=== PATIENT | female | born 1940 | race Caucasian/White ===

== ENCOUNTER 2020-07-27 12:39 | Inpatient (IN) | payer MEDICARE ==
[~2020-07-27] VITALS: Ht 165.1 cm; Wt 81.6 kg
[2020-07-27] MEDS ORDERED: ACETAMINOPHEN325 MG PO (12:56)
[2020-07-27] MEDS ORDERED: NORVASC5 MG PO (12:58)
[2020-07-27] MEDS ORDERED: ZYRTEC10 MG PO (12:58)
[2020-07-27] MEDS ORDERED: ASPIRIN325 MG PO (12:58)
[2020-07-27] MEDS ORDERED: LEXAPRO20 MG PO (13:00)
[2020-07-27] MEDS ORDERED: MYRBETRIQ50 MG PO (13:00)
[2020-07-27] MEDS ORDERED: VITAMIN B-121000 MCG PO (13:00)
[2020-07-27] MEDS ORDERED: OMEPRAZOLE20 M1 PO (13:01)
[2020-07-27] MEDS ORDERED: PRAVASTATIN SOD10 MG PO (13:01)
[2020-07-27 13:16] LABS: BASOPHILS 0.1 % (0-2); EOSINOPHILS 0 % (0-7); HEMATOCRIT 42.2 % (36.0-48.0); HEMOGLOBIN 14.4 g/dL (12-16); IMMATURE GRANULOCYTES 0.4 % (0-5); LYMPHOCYTE ABS# 0.99 10x3/uL (1.18-3.74); LYMPHOCYTES 5.4 % (15-50); MCH 33.5 pg (26.0-34.0); MCHC 34.1 g/dL (31.0-37.0); MCV 98.1 fL (80.0-100.0); MEAN PLATELET VOLUME 9.8 fL (7.4-10.4); MONOCYTES 6.6 % (2-11); NEUTROPHIL ABS# 16.09 10x3/uL (1.56-6.13); NEUTROPHILS 87.5 % (40-80); PLATELET COUNT 285 10x3/uL (130-400); RDW 13.6 % (11.5-14.5); WBC 18.4 10x3/uL (4.8-10.8)
[2020-07-27 13:17] LABS: CALC OSMOLALITY 276 mosm/kg (275-300); CALCIUM 9.4 mg/dL (8.5-10.1); CARBON DIOXIDE 26.8 mmol/L (21.0-32.0); CHLORIDE - SERUM 101 mmol/L (98-107); CREATININE - SERUM 0.7 mg/dL (0.6-1.3); GLUCOSE 114 mg/dL (74-106); POTASSIUM - SERUM 3.7 mmol/L (3.5-5.1); SODIUM 138 mmol/L (136-145); UREA NITROGEN 12 mg/dL (7-18); eGFR NON AFRICAN AMERICAN 86 mL/min (90-120)
[2020-07-27 13:24] LABS: ALBUMIN 3.7 g/dL (3.4-5.0); ALKALINE PHOSPHATASE 101 U/L (30-120); ALT (SGPT) 22 U/L (10-68); BILIRUBIN - TOTAL 0.65 mg/dL (0.2-1.3)
--- NOTE | 2020-07-27 14:19 | NUR ---
IN AND OUT CATHETER DONE TO COLLECT URINE SPECIMEN. SCANT AMOUNT RETRIEVED. AFTER CATHETER REMOVED, PATIENT WAS INCONTINENT OF LARGE AMOUNT OF URINE. LINENS CHANGED.
[2020-07-27 15:25] LABS: BILIRUBIN NEGATIVE (NEGATIVE); KETONE LARGE mg/dL (NEGATIVE); NITRITE NEGATIVE (NEGATIVE); UROBILINOGEN NORMAL mg/dL (< 2)
[2020-07-27 15:30] LABS: APTT 28.8 SECONDS (22.8-39.4); INR 1.03 (0.85-1.17); PROTIME 12.5 SECONDS (11.6-15.0)
[2020-07-27 15:45] LABS: CKMB 15.3 U/L (0.0-3.6); TROPONIN-I 0.046 ng/mL (0.000-0.060)
[2020-07-27 15:47] LABS: CREATINE KINASE 988 UL (21-215)
--- NOTE | 2020-07-27 17:00 | NUR ---
LINENS SOAKED WITH URINE. ASSISTED PATIENT TO BEDSIDE CHAIR. GOWN AND BRIEFS CHANGED, LINENS CHANGED.
--- NOTE | 2020-07-27 17:49 | NUR ---
PATIENT'S SON NOTIFIED OF ROOM NUMBER, MED/SURG UNIT PHONE AND PATIENT'S CODE NUMBER. REPORT CALLED TO ARASELI DUMONT/SURG.
--- NOTE | 2020-07-27 19:00 | NUR ---
BEDSIDE REPORT RECEIVED AND CARE OF PT ASSUMED. PT LYING IN HIGH ISABEL'S POSITION EATING A SANDWICH. IV TO RIGHT HAND PATENT WITH NS INFUSING AT 50 ML/HR.
--- NOTE | 2020-07-27 19:15 | NUR ---
PLACED SCD'S ON PT'S BLE PER ORDER. TELEMETRY PLACED PER ORDER AND PT READING SR AT THIS ASSESSMENT. BED ALARM ACTIVATED ON BED FOR SAFETY.
--- NOTE | 2020-07-27 20:38 | NUR ---
HS MEDICATIONS GIVEN. WILL CONTINUE TO MONITOR FOR NEEDS.
[2020-07-27 20:42] VITALS: BP 129/77; BMI 24.6
--- NOTE | 2020-07-27 21:06 | NUR ---
ADMISSION ASSESSMENT AND HISTORY COMPLETE.
[2020-07-27] MEDS ORDERED: TRAZODONE HCL50 MG PO (21:15)
[2020-07-27] MEDS ORDERED: POLY-VI-SOL W/I50 ML PO (21:15)
[2020-07-27] MEDS ORDERED: PHENERGAN25 M1 PO (21:17)
--- NOTE | 2020-07-27 21:26 | NUR ---
MED REC RECONCILED WITH PT'S NURSE AT THE [facility].
[2020-07-27] MEDS ORDERED: [UNRECOGNIZED DRUG - OTHER] PO (21:56)
[2020-07-28] VITALS: BP 132/72
[2020-07-28 04:00] VITALS: BP 129/57
[2020-07-28 06:02] LABS: BASOPHILS 0.2 % (0-2); EOSINOPHILS 0.7 % (0-7); HEMATOCRIT 39.2 % (36.0-48.0); HEMOGLOBIN 13.3 g/dL (12-16); IMMATURE GRANULOCYTES 0.3 % (0-5); LYMPHOCYTE ABS# 2.57 10x3/uL (1.18-3.74); LYMPHOCYTES 23.4 % (15-50); MCH 33.1 pg (26.0-34.0); MCHC 33.9 g/dL (31.0-37.0); MCV 97.5 fL (80.0-100.0); MEAN PLATELET VOLUME 10.5 fL (7.4-10.4); MONOCYTES 11.3 % (2-11); NEUTROPHIL ABS# 7.03 10x3/uL (1.56-6.13); NEUTROPHILS 64.1 % (40-80); PLATELET COUNT 303 10x3/uL (130-400); RBC 4.02 10x6/uL (4.00-5.40); RDW 14.1 % (11.5-14.5)
[2020-07-28 06:18] LABS: ALBUMIN 3.1 g/dL (3.4-5.0); ALKALINE PHOSPHATASE 82 U/L (30-120); ALT (SGPT) 20 U/L (10-68); BILIRUBIN - TOTAL 0.58 mg/dL (0.2-1.3); CALC OSMOLALITY 271 mosm/kg (275-300); CARBON DIOXIDE 24.6 mmol/L (21.0-32.0); CHLORIDE - SERUM 104 mmol/L (98-107); CREATININE - SERUM 0.6 mg/dL (0.6-1.3); GLUCOSE 98 mg/dL (74-106); MAGNESIUM - SERUM 1.8 mg/dL (1.8-2.4); PHOSPHOROUS 3.1 mg/dL (2.5-4.9); POTASSIUM - SERUM 3.2 mmol/L (3.5-5.1); PROTEIN - SERUM 6.4 g/dL (6.4-8.2); SODIUM 137 mmol/L (136-145); eGFR NON AFRICAN AMERICAN > 90 mL/min (90-120)
[2020-07-28 06:20] LABS: UREA NITROGEN 8 mg/dL (7-18)
--- NOTE | 2020-07-28 07:23 | NUR ---
RECIEVED BEDSIDE REPORT. IN BED SLEEPING. AROUSES TO VOICE. DENIES NEEDS AT THIS TIME. FREE FROM SIGNS OF DISTRESS. BED LOW POSITION, CALL LIGHT IN REACH. WILL CONTINUE TO MONITOR.
[2020-07-28 08:00] VITALS: BP 136/72
[2020-07-28 14:33] VITALS: Ht 165.1 cm; Wt 81.6 kg
--- NOTE | 2020-07-28 19:16 | NUR ---
PATIENT RESTING IN BED WITH NO S/S OF DISTRESS AND DENIES NEEDS AT THIS TIME. BED IN LOWEST POSITION AND CALL LIGHT IN REACH. ENCOURAGED PATIENT TO CALL WITH NEEDS.
[2020-07-28 19:20] VITALS: BP 124/77
--- NOTE | 2020-07-28 20:10 | NUR ---
ADMINISTERED MEDS PER ORDERS. PATIENT DENIES OTHER NEEDS AT THIS TIME. ENCOURAGED PATIENT TO CALL WITH NEEDS.
--- NOTE | 2020-07-28 23:33 | NUR ---
UPON ENTERING THE PATIENT'S ROOM I COULD SMELL CIGARETTE SMOKE. THERE WAS ALSO A CUP OF WATER WITH ASHES IN IT SITTING ON THE PATIENT'S BEDSIDE TABLE. I EDUCATED THE PATIENT ON THE IMPORTANCE OF NOT SMOKING AND ESPECIALLY NOT SMOKING IN THE HOSPITAL. 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 PATIENT VERBALIZED UNDERSTANDING OF ALL OF THE ABOVE AND ASSURED ME IT WILL NOT HAPPEN AGAIN.
[2020-07-29 03:24] VITALS: BP 129/68
[2020-07-29 05:23] LABS: BASOPHILS 0.6 % (0-2); EOSINOPHILS 0.7 % (0-7); HEMATOCRIT 38.5 % (36.0-48.0); LYMPHOCYTES 18.4 % (15-50); MCH 33.4 pg (26.0-34.0); MCHC 33.8 g/dL (31.0-37.0); MCV 98.6 fL (80.0-100.0); MEAN PLATELET VOLUME 8.3 fL (7.4-10.4); MONOCYTES 12.7 % (2-11); NEUTROPHILS 67.6 % (40-80); PLATELET COUNT 265 10x3/uL (130-400); RDW 13.7 % (11.5-14.5)
[2020-07-29 06:20] LABS: ALBUMIN 3.1 g/dL (3.4-5.0); ALKALINE PHOSPHATASE 78 U/L (30-120); BILIRUBIN - TOTAL 0.52 mg/dL (0.2-1.3); CALC OSMOLALITY 277 mosm/kg (275-300); CARBON DIOXIDE 26.5 mmol/L (21.0-32.0); CHLORIDE - SERUM 104 mmol/L (98-107); CREATININE - SERUM 0.6 mg/dL (0.6-1.3); GLUCOSE 119 mg/dL (74-106); MAGNESIUM - SERUM 1.7 mg/dL (1.8-2.4); PHOSPHOROUS 2.9 mg/dL (2.5-4.9); POTASSIUM - SERUM 3.3 mmol/L (3.5-5.1); PROTEIN - SERUM 6.2 g/dL (6.4-8.2); SODIUM 140 mmol/L (136-145); UREA NITROGEN 6 mg/dL (7-18); eGFR NON AFRICAN AMERICAN > 90 mL/min (90-120)
[2020-07-29 06:22] LABS: ALT (SGPT) 28 U/L (10-68)
--- NOTE | 2020-07-29 07:31 | NUR ---
ALERT AND ORIENTED TO SELF. ASSESSMENT COMPLETE. DENIES NEEDS. BED LOW. BED ALARM ON. CALL MONTENEGRO AND PERSONAL ITEMS IN REACH. WILL CONTINUE TO MONITOR.
[2020-07-29 10:12] VITALS: BP 117/74
[2020-07-29 12:29] VITALS: BP 132/79
--- NOTE | 2020-07-29 12:31 | NUR ---
PATIENT REQUESTING BEDPAN. BEDDING SOAKED IN URINE. CHANGED AND GIVEN BEDPAN. VOIDED AGAIN. DENIES FURTHER NEEDS.
--- NOTE | 2020-07-29 14:28 | NUR ---
DC EDUCATION PROVIDED TO PATIENT. PATIENT CONFUSED. UNABLE TO SIGN PAPERWORK. IV REMOVED FROM RIGHT HAND WITH TIP INTACT. REPORT CALLED TO SARTHAK VELAZQUEZ AT [facility]. 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
--- NOTE | 2020-07-29 14:30 | NUR ---
DAUGHTER, JAMAR, NOTIFIED OF DC AND DC EDUCATION PROVIDED. DENIES QUESTIONS.
--- NOTE | 2020-07-29 14:41 | MORECARE ---
CASE MANAGEMENT DISCHARGE SUMMARY PATIENT: ROHIT SOMMERS UNIT: [id number] ADM DATE: 07/27/20 AGE: 79 : 42 SEX: F ROOM/BED: D.2223 AUTHOR: KAEL,DOC PHYSICIAN: REFERRING PHYSICIAN: ELISA ISSA MD DATE OF SERVICE: 07/29/20 Case Management Discharge Planning Summary COMMENTS ENTERED DATE: 07/29/20 14:30 CT COMMENT TYPE: Discharge Planning REVIEWER: Yessenia Sommers PATIENT LIVES AT THE [facility] IN ASSISTED LIVING. SHE IS CURRENT WITH [facility]. PLANS TO RETURN TO THE [facility] TODAY. I HAVE FAXED UPDATES AND THEY PLAN TO PICK HER UP AROUND 3PM TODAY. CM TO FOLLOW AND ASSIST NEEDED. DCP REVIEW SUMMARY ANTICIPATED D/C DATE: EXPECTED LOS : CASE STATUS: DCP Initiated INITIAL REVIEW: 07/27/2020 INITIAL REVIEWER: Yessenia Sommers FINAL DISCHARGE DISPOSITION: : FINAL REVIEWER: FINAL REVIEW DATE: DCP [employer] Questions & Answers QUESTION: ANSWER : PATIENT: ROHIT SOMMERS ENCOUNTER: [id number] MEDICAL RECORD#: [id number] ADMISSION DATE: 07/27/2020 DISCHARGE DATE: ATTENDING MD: : AGE: 79 MARITAL STATUS: S DC PLAN ID: [id number] FACILITY: [facility] PRINTED ON: 07/29/20 14:41 CT All edits/amendments must be made on the electronic document DICTATION DATE: 07/29/201440 HOSPICE TEAM LEAD: JHONATHAN 07/29/201440 RPT#: [id number] DC DATE: STATUS: ADM IN [facility] [address] [place] [address] END OF REPORT
--- NOTE | 2020-07-29 15:02 | NUR ---
TELEMETRY REMOVED AND RETURNED TO [facility] AT [facility].
--- NOTE | 2020-07-29 15:36 | NUR ---
PATIENT DC TO [facility] WITH ALL BELONGINGS.
--- NOTE | 2020-07-29 16:03 | NUR ---
OT NOTE: PT REQUIRED MIN-MOD A FOR SUPINE TO SIT. PT REQUIRED MIN-MOD A FOR SIT TO STAND. PT REQUIRED MIN A FOR ADL MOB TO BATHROOM. PT COMPLETED TOILETING WITH SBA. PT COMPLETED TOILET HYGIENE WITH MIN A. PT COMPLETED FACE AND HAND HYGIENE WITH SETUP. NOTIFIED NURSE OF SORES ON FEET. [phone] SABIHA ROY COTA
--- NOTE | 2020-07-30 14:44 | MORECARE ---
CASE MANAGEMENT DISCHARGE SUMMARY PATIENT: ROHIT SOMMERS UNIT: [id number] ADM DATE: 07/27/20 AGE: 79 : 42 SEX: F ROOM/BED: D.2223 AUTHOR: KAEL,DOC PHYSICIAN: REFERRING PHYSICIAN: ELISA ISSA MD DATE OF SERVICE: 07/30/20 Case Management Discharge Planning Summary COMMENTS ENTERED DATE: 07/29/20 14:30 CT COMMENT TYPE: Discharge Planning REVIEWER: Yessenia Sommers PATIENT LIVES AT THE [facility] IN ASSISTED LIVING. SHE IS CURRENT WITH [facility]. PLANS TO RETURN TO THE [facility] TODAY. I HAVE FAXED UPDATES AND THEY PLAN TO PICK HER UP AROUND 3PM TODAY. CM TO FOLLOW AND ASSIST NEEDED. DCP REVIEW SUMMARY ANTICIPATED D/C DATE: EXPECTED LOS : CASE STATUS: DCP Initiated INITIAL REVIEW: 07/27/2020 INITIAL REVIEWER: Yessenia Tootie FINAL DISCHARGE DISPOSITION: : FINAL REVIEWER: FINAL REVIEW DATE: DCP [employer] Questions & Answers QUESTION: ANSWER : PATIENT: ROHIT SOMMERS ENCOUNTER: [id number] MEDICAL RECORD#: [id number] ADMISSION DATE: 07/27/2020 DISCHARGE DATE: 07/29/2020 ATTENDING MD: : AGE: 79 MARITAL STATUS: S DC PLAN ID: [id number] FACILITY: [facility] PRINTED ON: 07/30/20 14:43 CT All edits/amendments must be made on the electronic document DICTATION DATE: 07/30/201442 DIRECTOR BUSINESS: DM 07/30/201442 RPT#: [id number] DC DATE:07/29/20 STATUS: DIS IN [facility] [address] [place] [address] END OF REPORT
== END 2020-07-29 15:36 | disposition home or self-care (01) | DRG 815 ==
LOC: D.ER 12:39 → D.MS 16:33
PROVIDERS: Family Medicine; ADMIT Family Medicine; ATTEND Family Medicine
DX: D72.829 Elevated white blood cell count, unspecified (principal); M84.422A Pathological fracture, left humerus, initial encounter for fracture; I10 Essential (primary) hypertension; E03.9 Hypothyroidism, unspecified; I48.91 Unspecified atrial fibrillation; F03.90 Unspecified dementia, unspecified severity, without behavioral disturbance, psychotic disturbance, mood disturbance, and anxiety; W05.0XXA Fall from non-moving wheelchair, initial encounter; E53.8 Deficiency of other specified B group vitamins; Z86.73 Personal history of transient ischemic attack (TIA), and cerebral infarction without residual deficits